=== PATIENT | male | born 2005 | race Two or more races ===

== ENCOUNTER 2023-07-14 10:34 | Emergency (ER) | payer OTHER, SELFPAY ==
[2023-07-14 11:43] VITALS: BP 124/74; PULSE 88; RESP 18; TEMP 36.9; O2SAT 99; BMI 36.0
--- NOTE | 2023-07-14 11:43 | ED.GENADULT ---
HPI - General Adult General Chief complaint: Upper Respiratory Symptoms Stated complaint: Sore Throat Time Seen by Provider: 07/14/23 13:10 Source: patient Mode of arrival: ambulatory Limitations: no limitations History of Present Illness HPI narrative: Patient is a 17-year-old male presenting to the emergency department with complaint of sore throat, cough and congestion for the past week. Reports his roommate is sick with similar symptoms. Has been using ibuprofen and Tylenol occasionally for his symptoms. Denies fevers. Denies any difficulty swallowing or inability to manage his secretions. MD complaint: Sore throat Onset (ago): week(s) Severity: moderate Quality: burning Pain Consistency: constant Relieving factors: none Exacerbating factors: eating Associated symptoms: cough Treatments prior to arrival: none Related Data Allergies Allergy/AdvReac Type Severity Reaction Status Date / Time No Known Allergies Allergy Verified 07/14/23 11:44 Review of Systems Review of Systems: As per HPI. Yes all other systems are reviewed and are negative Constitutional: Constitutional: Reports as per HPI [facility] Social History Social History Advance Directives: No Advance Directives Information Provided: No Physical Exam ED Vital Signs: Vital Signs - 24 hr 07/14/23 11:43 Temperature 98.4 F Pulse Rate 88 Respiratory Rate 18 Blood Pressure 124/74 Pulse Oximetry 99 Oxygen Delivery Method Room Air BMI result Body Mass Index 36.0 Vital signs have been reviewed and appear to be correct. Blood pressure normal. Heart rate normal. Respiratory rate normal. Temperature normal. Oxygen saturation normal. Const General: cooperative, healthy appearing and no acute distress Orientation/consciousness: oriented to person, oriented to place, oriented to time and patient oriented x3 Limitations: no limitations [facility] Head: Yes normocephalic and Yes atraumatic Ears: external ears normal, TM's normal bilaterally and EAC's normal General nose exam: Normal external nose present Face and sinus: Yes face symmetric Mouth: Normal oral and palatal mucosa present, lip normal, tongue normal, oropharynx normal, moist mucous membranes, no audible dysphonia, no drooling and no trismus Throat: Yes tonsils normal, Yes uvula midline, No peritonsillar mass, Yes posterior oropharynx abnormal (erythema) and No uvular edema Eyes Pupils: Equal, round and reactive pupils present Neck Neck: Yes normal visual inspection, Yes no lymphadenopathy and Yes supple Resp Effort & Inspection: normal respiratory effort and able to speak in complete sentences Auscultation: clear to auscultation bilaterally Cardio Rate: regular rate Rhythm: regular rhythm Heart sounds: S1 normal heart sound present and S2 normal heart sound present GI Palpation (GI): Soft to palpation and nontender Auscultation: normoactive bowel sounds General: Yes no CVA tenderness Back/Spine/Pelvis Back: no CVA tenderness Skin General skin exam: elasticity normal and turgor normal Neuro General: oriented to person, oriented to place, oriented to time, patient oriented x3, moves all extremities, no focal motor deficits and CN's II-XI intact bilaterally Cranial nerves: Yes Equal, round and reactive pupils present Cognition (Neuro): normal cognition Extrem General: Yes full ROM, Yes no pedal edema and Yes no calf tenderness Psych Mental Status: mental status grossly normal Affect: normal affect Thought process: Normal thought process present Course Course Course Narrative: RME:?17 yo male here w/ dry cough, sore throat x1 wk. roommate at home w/ same symptoms. denies fever or odyonphagia. vaccines utd. viral and strep swabs ordered. Full HPI, ROS and PE to be performed by the primary ED provider. Medical Decision Making Medical Decision Making [facility] [place] Narrative: Patient is a 17-year-old male presenting to the emergency department with complaint of sore throat, cough and congestion for the past week. On exam patient is awake, A+Ox3, VS WNL, afebrile, normal neurological exam without focal deficits, physical exam findings as above. Given reported symptoms and physical exam findings, initial differential includes strep pharyngitis, viral illness, covid, flu, rsv, mononucleosis. Do not suspect [employer] or RPA. Strep and viral swabs negative. Runnels negative. Patient updated on results and all questions answered. Discussed with patient that symptoms are likely due to viral illness, he can alternate Tylenol and ibuprofen, gargle with warm salt water. Instructed patient to follow-up with primary care provider. Return precautions discussed at bedside. Patient verbalized understanding of and agreement with plan. Differential Diagnosis Differential Diagnoses: The differential diagnosis associated with the presentation includes As per MDM. Lab Data [facility] [place] Lab Attestation statement: I reviewed the patient's lab results. As per MDM. Labs: Lab Results 07/14/23 07/14/23 07/14/23 Range/Units 11:46 12:06 13:23 Monoscreen Negative (Negative) Influenza Type A (PCR) NEGATIVE (Negative) Influenza Type B (PCR) NEGATIVE (Negative) RSV RNA Qual (PCR) NEGATIVE (Negative) SARS-CoV-2 RNA (RT-PCR) NEGATIVE (Negative) S. pyogenes GrpA KRISTOFER Negative (Negative) External Record Review External record reviewed: Inpatient record, Office record and Outpatient record Discharge Plan Discharge Clinical Impression: Pharyngitis, Viral infection Patient Disposition: Home, Self-Care Instructions: Pharyngitis (ED), Viral Syndrome (ED) Additional Instructions: You were evaluated in the emergency department today for a sore throat. Your COVID, flu, and strep swabs were all negative. Your test for mono was also negative. Your symptoms are likely related to a viral infection which will resolve on its own with time and rest. Be sure to drink adequate fluids. You can use Tylenol and ibuprofen per package directions as needed for discomfort. If necessary, you can alternate these medications every 3 hours. For example, at 9:00 a.m. take ibuprofen, then at noon take Tylenol, then at 3:00 p.m. take ibuprofen, etc.. You can also gargle with warm salt water several times daily. Follow-up with your primary care provider this week. Return to the emergency department if you develop difficulty swallowing, worsening pain, shortness of breath, are unable to swallow your saliva, or any other concerning symptoms. Stand Alone Forms: Work/School Release Print Language: Luxembourgish
[2023-07-14 12:15] LABS: IDNOW Serial# 08D9AD1C; Strep A Nucleic Acid Negative (Negative)
[2023-07-14 12:51] LABS: Influenza A PCR NEGATIVE (Negative); Influenza B PCR NEGATIVE (Negative); Resp Syncy Virus RNA Qual PCR NEGATIVE (Negative); SARS COV2 PCR INHOUSE NEGATIVE (Negative)
[2023-07-14 14:05] LABS: Monotest Negative (Negative)
[2023-07-14 14:18] VITALS: BP 124/74; PULSE 88; RESP 18; TEMP 36.9; O2SAT 99
== END 2023-07-14 14:18 | disposition home or self-care (01) ==
PROVIDERS: Physician Assistant Medical; Registered Nurse Emergency; Emergency Provider Student in an Organized Health Care Education/Training Program
DX: B34.9 Viral infection, unspecified (principal); J02.9 Acute pharyngitis, unspecified; Z11.52 Encounter for screening for COVID-19; Z20.822 Contact with and (suspected) exposure to COVID-19
CPT/HCPCS: 0241U; 36415; 86308; 87651; 99283